=== PATIENT | female | born 1995 | race Caucasian/White ===

== ENCOUNTER 2022-11-01 16:33 | Inpatient (IN) | payer OTHER ==
[2022-11-01 16:54] VITALS: BMI 29.2
[2022-11-01] MEDS ORDERED: LORazepam 2 MG/ML SDV VIAL IVPUSH ONE ×5 (16:55→23:17)
[2022-11-01] MEDS ORDERED: SODIUM CHLORIDE 0.9% 500 ML INFUS.BAG IV ONE ×3 (16:58→19:08)
[2022-11-01 17:39] LABS: VENOUS O2 SATURATION 59.2 % (70-80); VENOUS PCO2 46.2 mmHg (38-52); VENOUS PH 7.223 (7.310-7.410)
[2022-11-01 18:00] LABS: PH,URINE 5.5 (5.0-8.0); URINE APPEARANCE CLEAR; URINE BILIRUBIN NEGATIVE (NEGATIVE); URINE COLOR YELLOW; URINE GLUCOSE (UA) NEGATIVE (NEGATIVE); URINE KETONE NEGATIVE (NEGATIVE); URINE LEUK ESTERASE NEGATIVE (NEGATIVE); URINE NITRITE NEGATIVE (NEGATIVE); URINE PROTEIN TRACE (NEGATIVE); URINE UROBILINOGEN 0.2 mg/dL (0.2-1.0)
[2022-11-01 18:00] LABS: BASO % 0.2 % (0-2.0); HEMATOCRIT 39.5 % (32.4-45.2); HEMOGLOBIN 12.6 GM/dL (10.7-15.3); MCH 28.8 pg (25.7-33.7); MCHC 31.9 g/dl (32.0-36.0); MEAN CELL VOLUME 90.2 fl (80-96); MONO % 5.6 % (3.8-10.2); NEUT % 81.2 % (42.8-82.8); PLATELET COUNT 261 10^3/uL (134-434); RBC 4.38 M/mm3 (3.60-5.2); RDW 16.9 % (11.6-15.6)
[2022-11-01 18:04] LABS: INR 0.98 (0.83-1.09); PROTHROMBIN TIME (PATIENT) 11.3 SEC (9.7-13.0)
[2022-11-01 18:07] LABS: ACTIVATED PTT 25.8 SECONDS (25.2-36.5); CHLORIDE 102 mmol/L (98-107); SODIUM 138 mmol/L (136-145)
[2022-11-01 18:09] LABS: CALCIUM 8.8 mg/dL (8.5-10.1)
[2022-11-01 18:10] LABS: ALBUMIN 4.4 g/dl (3.4-5.0); ANION GAP 16 MMOL/L (8-16); BLOOD UREA NITROGEN 17.8 mg/dL (7-18); CO2 20 mmol/L (21-32); GLUCOSE,RANDOM 132 mg/dL (74-106)
[2022-11-01 18:13] LABS: CREATININE 1.1 mg/dL (0.55-1.3); SGOT/AST 16 U/L (15-37); SGPT/ALT 32 U/L (13-61)
[2022-11-01 18:14] LABS: COCAINE, UR NEGATIVE (NEGATIVE); METHADONE, UR NEGATIVE (NEGATIVE); OPIATES, URI NEGATIVE (NEGATIVE); URINE AMPHETAMINES NEGATIVE (NEGATIVE)
[2022-11-01 18:15] LABS: PHENCYCLIDINE,URINE NEGATIVE (NEGATIVE); URINE BARBITURATES NEGATIVE (NEGATIVE); URINE BENZODIAZEPINES NEGATIVE (NEGATIVE)
[2022-11-01 18:15] LABS: BILIRUBIN,TOTAL 0.4 mg/dL (0.2-1); TOT PROT 7.8 g/dl (6.4-8.2)
[2022-11-01 18:16] LABS: ALK PHOS 78 U/L (45-117)
[2022-11-01 18:27] LABS: LACTIC ACID 9.5 mmol/L (0.4-2.0)
[2022-11-01] MEDS ORDERED: DEXTROSE 5% IVPB ONE ×3 (18:37→18:38)
[2022-11-01] MEDS ORDERED: ACETYLCYSTEINE IVPB ONE ×3 (18:37→18:38)
[2022-11-01] MEDS ORDERED: WATER IVPB ONE ×3 (18:37→18:38)
[2022-11-01] MEDS ORDERED: ACETYLCYSTEINE 20% 200MG/ML 30ML VIAL *FOR INJECTION USE ONLY IVPB ONE (18:43)
[2022-11-01 21:16] LABS: VENOUS BASE EXCESS -2.9 mmol/L (-2-2); VENOUS O2 SATURATION 94.8 % (70-80); VENOUS PCO2 38.2 mmHg (38-52); VENOUS PH 7.376 (7.310-7.410)
[2022-11-01 21:26] LABS: CHLORIDE 109 mmol/L (98-107); SODIUM 141 mmol/L (136-145)
[2022-11-01 21:28] LABS: CALCIUM 7.9 mg/dL (8.5-10.1)
[2022-11-01 21:29] LABS: ALBUMIN 3.8 g/dl (3.4-5.0); ANION GAP 9 MMOL/L (8-16); BLOOD UREA NITROGEN 13.4 mg/dL (7-18); CO2 23 mmol/L (21-32); GLUCOSE,RANDOM 99 mg/dL (74-106)
[2022-11-01 21:32] LABS: CREATININE 0.8 mg/dL (0.55-1.3); SGOT/AST 24 U/L (15-37); SGPT/ALT 31 U/L (13-61)
[2022-11-01 21:33] LABS: BILIRUBIN,TOTAL 0.4 mg/dL (0.2-1)
[2022-11-01 21:35] LABS: ALK PHOS 69 U/L (45-117)
[2022-11-02] MEDS ORDERED: ACETAMINOPHEN 650 MG/20.3 ML ORAL SOLUTION (CUPS) PO PRN (07:21)
[2022-11-02] MEDS ORDERED: LORazepam 2 MG/ML SDV VIAL IVPUSH PRN (12:32)
[2022-11-02 12:33] LABS: HEMATOCRIT 38.1 % (32.4-45.2); HEMOGLOBIN 12.1 GM/dL (10.7-15.3); MCH 28.3 pg (25.7-33.7); MCHC 31.8 g/dl (32.0-36.0); MEAN CELL VOLUME 89.1 fl (80-96); MEAN PLT VOLUME 10.3 fl (7.5-11.1); PLATELET COUNT 232 10^3/uL (134-434); RBC 4.28 M/mm3 (3.60-5.2); RDW 16.5 % (11.6-15.6); WHITE BLOOD COUNT 17.1 K/mm3 (4.0-10.0)
[2022-11-02 12:47] LABS: INR 1.22 (0.83-1.09); PROTHROMBIN TIME (PATIENT) 14.1 SEC (9.7-13.0)
[2022-11-02 12:50] LABS: CHLORIDE 106 mmol/L (98-107); SODIUM 138 mmol/L (136-145)
[2022-11-02 12:52] LABS: CO2 21 mmol/L (21-32); MAGNESIUM 1.8 mg/dL (1.8-2.4)
[2022-11-02 12:53] LABS: CALCIUM 8.8 mg/dL (8.5-10.1); GLUCOSE,RANDOM 77 mg/dL (74-106)
[2022-11-02 12:54] LABS: ALBUMIN 3.8 g/dl (3.4-5.0); AMYLASE 60 U/L (25-115); BLOOD UREA NITROGEN 8.6 mg/dL (7-18)
[2022-11-02 12:55] LABS: CREATININE 0.6 mg/dL (0.55-1.3)
[2022-11-02 12:56] LABS: BILIRUBIN,DIRECT 0.2 mg/dL (0.0-0.2); PHOSPHOROUS 2.4 mg/dL (2.5-4.9); SGOT/AST 106 U/L (15-37); SGPT/ALT 39 U/L (13-61)
[2022-11-02 12:57] LABS: TOT PROT 6.7 g/dl (6.4-8.2)
[2022-11-02 12:58] LABS: BILIRUBIN,TOTAL 0.7 mg/dL (0.2-1)
[2022-11-02 12:59] LABS: ALK PHOS 61 U/L (45-117)
[2022-11-02 13:12] LABS: ANION GAP 12 MMOL/L (8-16)
[2022-11-02 13:31] LABS: HEMATOCRIT 37.2 % (32.4-45.2); HEMOGLOBIN 12.1 GM/dL (10.7-15.3); MCH 28.8 pg (25.7-33.7); MCHC 32.4 g/dl (32.0-36.0); MEAN CELL VOLUME 88.8 fl (80-96); MEAN PLT VOLUME 10.1 fl (7.5-11.1); PLATELET COUNT 222 10^3/uL (134-434); RBC 4.19 M/mm3 (3.60-5.2); RDW 16.2 % (11.6-15.6); WHITE BLOOD COUNT 16.9 K/mm3 (4.0-10.0)
[2022-11-02] MEDS ORDERED: POTASSIUM CHLORIDE TABS 10 MEQ TABLET.ER (FP) PO ONE (13:45)
[2022-11-02 14:00] LABS: CHLORIDE 108 mmol/L (98-107); SODIUM 140 mmol/L (136-145)
[2022-11-02] MEDS: KCL 10 MEQ IVPB 10 MEQ/100 ML INFUS.BAG IVPB SCH ×3 (14:00→16:00)
[2022-11-02 14:02] LABS: ALBUMIN 3.6 g/dl (3.4-5.0); CALCIUM 8.5 mg/dL (8.5-10.1); CO2 19 mmol/L (21-32); GLUCOSE,RANDOM 84 mg/dL (74-106)
[2022-11-02 14:03] LABS: BLOOD UREA NITROGEN 7.9 mg/dL (7-18)
[2022-11-02 14:06] LABS: SGOT/AST 106 U/L (15-37); SGPT/ALT 42 U/L (13-61)
[2022-11-02 14:07] LABS: TOT PROT 6.6 g/dl (6.4-8.2)
[2022-11-02 14:08] LABS: ALK PHOS 62 U/L (45-117)
[2022-11-02 14:09] LABS: ANION GAP 13 MMOL/L (8-16); BILIRUBIN,TOTAL 0.7 mg/dL (0.2-1); CREATININE 0.6 mg/dL (0.55-1.3)
[2022-11-02] MEDS ORDERED: ACETYLCYSTEINE 20% 200MG/ML 30ML VIAL *FOR INJECTION USE ONLY IVPB ONE (14:20)
[2022-11-02] MEDS ORDERED: ACETYLCYSTEINE IVPB ONE (16:00)
[2022-11-02] MEDS ORDERED: DEXTROSE 5% IVPB ONE (16:00)
[2022-11-02] MEDS ORDERED: WATER IVPB ONE (16:00)
[2022-11-02] MEDS: MUPIROCIN 2% TOPICAL OINTMENT FOR DECOLONIZATION NS SCH ×2 (17:33→21:03)
[2022-11-02] MEDS ORDERED: POTASSIUM CHLORIDE TABS 20 MEQ TABLET.ER (FP) PO ONE ×2 (17:45→21:00)
[2022-11-02] MEDS: CHLORHEXIDINE GLUCONATE 4% CLEANSER FOR DECOLONIZATION TP SCH (21:04)
[2022-11-02 23:46] LABS: CALCIUM 8.7 mg/dL (8.5-10.1)
[2022-11-02 23:47] LABS: ALBUMIN 3.4 g/dl (3.4-5.0); BLOOD UREA NITROGEN 6.1 mg/dL (7-18)
[2022-11-02 23:50] LABS: CREATININE 0.6 mg/dL (0.55-1.3)
[2022-11-02 23:51] LABS: BILIRUBIN,TOTAL 0.6 mg/dL (0.2-1); TOT PROT 6.2 g/dl (6.4-8.2)
[2022-11-03 07:26] LABS: HEMATOCRIT 37.6 % (32.4-45.2); HEMOGLOBIN 12.2 GM/dL (10.7-15.3); MCH 29.1 pg (25.7-33.7); MCHC 32.5 g/dl (32.0-36.0); MEAN CELL VOLUME 89.5 fl (80-96); MEAN PLT VOLUME 10.1 fl (7.5-11.1); PLATELET COUNT 232 10^3/uL (134-434); RDW 16.5 % (11.6-15.6); WHITE BLOOD COUNT 13.4 K/mm3 (4.0-10.0)
[2022-11-03 07:38] LABS: INR 1.28 (0.83-1.09); PROTHROMBIN TIME (PATIENT) 14.8 SEC (9.7-13.0)
[2022-11-03 07:54] LABS: CALCIUM 8.3 mg/dL (8.5-10.1); MAGNESIUM 1.8 mg/dL (1.8-2.4)
[2022-11-03 07:55] LABS: BLOOD UREA NITROGEN 5.7 mg/dL (7-18)
[2022-11-03 07:57] LABS: PHOSPHOROUS 2.2 mg/dL (2.5-4.9)
[2022-11-03 07:58] LABS: CREATININE 0.6 mg/dL (0.55-1.3)
[2022-11-03] MEDS: MUPIROCIN 2% TOPICAL OINTMENT FOR DECOLONIZATION NS SCH ×2 (11:00→21:43)
[2022-11-03] MEDS: CHLORHEXIDINE GLUCONATE 4% CLEANSER FOR DECOLONIZATION TP SCH (21:43)
[2022-11-04] MEDS ORDERED: LORazepam 2 MG/ML SDV VIAL IVPUSH PRN (01:47)
[2022-11-04 09:25] LABS: ALBUMIN 3.4 g/dl (3.4-5.0)
[2022-11-04 09:28] LABS: BILIRUBIN,DIRECT 0.2 mg/dL (0.0-0.2)
[2022-11-04 09:30] LABS: BILIRUBIN,TOTAL 0.7 mg/dL (0.2-1); TOT PROT 6.5 g/dl (6.4-8.2)
[2022-11-04] MEDS ORDERED: MUPIROCIN 2% TOPICAL OINTMENT FOR DECOLONIZATION NS SCH (10:00)
[2022-11-04] MEDS ORDERED: CHLORHEXIDINE GLUCONATE 4% CLEANSER FOR DECOLONIZATION TP SCH (22:00)
[2022-11-05 09:45] LABS: HEMATOCRIT 38.1 % (32.4-45.2); HEMOGLOBIN 12.3 GM/dL (10.7-15.3); MCHC 32.4 g/dl (32.0-36.0); MEAN CELL VOLUME 89.6 fl (80-96); MEAN PLT VOLUME 9.6 fl (7.5-11.1); PLATELET COUNT 253 10^3/uL (134-434); RBC 4.25 M/mm3 (3.60-5.2); RDW 16.2 % (11.6-15.6); WHITE BLOOD COUNT 11.7 K/mm3 (4.0-10.0)
[2022-11-05 10:13] LABS: ALBUMIN 3.6 g/dl (3.4-5.0); BLOOD UREA NITROGEN 8.4 mg/dL (7-18); MAGNESIUM 1.9 mg/dL (1.8-2.4)
[2022-11-05 10:16] LABS: CREATININE 0.7 mg/dL (0.55-1.3); PHOSPHOROUS 3.8 mg/dL (2.5-4.9)
[2022-11-05 10:17] LABS: BILIRUBIN,TOTAL 1.1 mg/dL (0.2-1); TOT PROT 7.2 g/dl (6.4-8.2)
[2022-11-05 11:44] VITALS: RESP 18
[2022-11-06 09:20] VITALS: BP 145/88; PULSE 91; TEMP 98.2
== END 2022-11-06 10:13 | disposition home or self-care (01) | DRG 812 ==
LOC: JER 16:33 → JERBED 23:27 → JICU 11-02 13:14 → J7W 11-04 01:01
PROVIDERS: ADMIT Internal Medicine Pulmonary Disease; ATTEND Internal Medicine
DX: T39.1X2A Poisoning by 4-Aminophenol derivatives, intentional self-harm, initial encounter (principal); R56.9 Unspecified convulsions; E87.20 Acidosis, unspecified; T43.592A Poisoning by other antipsychotics and neuroleptics, intentional self-harm, initial encounter; R00.0 Tachycardia, unspecified; Y92.009 Unspecified place in unspecified non-institutional (private) residence as the place of occurrence of the external cause; E87.6 Hypokalemia; E83.39 Other disorders of phosphorus metabolism; F16.10 Hallucinogen abuse, uncomplicated
CPT/HCPCS: 0241U-QW; 36415; 70450-TC; 71045-TC-FY; 72125-TC; 74018-TC-FY; 80048; 80053; 80076; 80307; 81003; 82150; 82550; 82553; 82803; 83605; 83735; 84075; 84100; 84450; 84460; 84484; 84703; 85025; 85027; 85610; 85730; 86850; 86900; 86901; 87086; 93005; 93010; 99291